=== PATIENT | female | born 1945 | race Caucasian/White ===

== ENCOUNTER 2025-04-13 09:39 | Outpatient (AMB) | payer BC, SELFPAY ==
--- NOTE | 2025-04-13 09:46 | MHC.PC.OV ---
Vital Signs 04/13/25 09:55 Height 5 ft 5.16 in Weight 150 lb 2 oz BMI 24.9 BP 134/84 Blood Pressure Location Lt brachial Position Sitting Respiration 12 Pulse 84 Pulse Source Pulse Oximeter Temp 98 F Temp Source Oral Pulse Oximetry (%) 98 Oxygen Delivery Method Room Air Intake Visit Reasons: COMMERCIAL LITIGATION PARALEGAL REG VISIT THYROID F/U Intake Note: New patient visit Card Sorter Required: No Allergies Seasonal Allergies Allergy (Unknown, Verified 04/13/25 09:32) Unknown dust mite Allergy (Unknown, Uncoded 04/13/25 09:32) Unknown Tobacco use date assessed: 04/13/25 Fall risk assessment: 1 Fall in past year Last assessed Fall Risk: 04/13/25 Dental Screening Dental Screen Date: 04/13/25 Did you have a dental visit in the last 12 months?: Yes Did you have a dental problem in the last 6 months where you did not have access to dental care?: No Was dental information given to patient?: Patient has dentist HPI HPI Comments History of Present Illness Details The patient is an 80 year old female with a past medical history of MS, htn, hypothyroid/goiter, GERD, neuropathy, presenting to [facility] care and for preoperative evaluation Transferring from [place] in [place]. She has cataract surgery planned with Dr Miranda MS: Followed by the [facility]. Was on avonex-but caused AVN. She is stable without any recent or frequent relapse. She has chronic cramping, painful numbness and tingling of the bilateral feet and lower legs Hypothyroid: on levothyroxine 50mcg. Sees endocrinology. CV: on losartan. 134/84. Denies chest pain, dyspnea. Osteoporosis: Followed by endocrinology. On fosamax Follows with cardiology: Every 2 years for AAA-3.9. There has been no significant change MSK: s/p left hip replacement 2023 Mammogrm 2023 Td 2019 ROS CONSTITUTIONAL: Denies weight loss, fever and chills. HEENT: Denies changes in vision and hearing. RESPIRATORY: Denies SOB and cough. CV: Denies palpitations and CP GI: increased constipation : Denies dysuria and urinary frequency. MSK: Denies new myalgia and joint pain. SKIN: Denies rash and pruritus. NEUROLOGICAL: Denies headache PSYCHIATRIC: Denies recent changes in mood. PHYSICAL EXAM: GENERAL: Alert and oriented x 3. NAD EYES: EOMI. Anicteric. HENT: Moist mucous membranes. No scleral icterus. No cervical lymphadenopathy. LUNGS: Clear to auscultation bilaterally. CARDIOVASCULAR: Regular rate and rhythm. No murmur. No JVD. ABDOMEN: Soft, non-tender +bs EXTREMITIES: No edema. Non-tender. SKIN: No rashes or lesions. Warm. NEUROLOGIC: No focal neurological deficits. CN II-XII grossly intact PSYCHIATRIC: Cooperative. Appropriate mood and affect [facility] Surgical History History of total hip replacement Hx of colonoscopy History of strabismus surgery Family History Father HTN (hypertension) Esophageal cancer Mother Breast cancer Other FH: mental illness Substance abuse Social History [facility] Alcohol intake: current Patient Tobacco Use Status: Former Tobacco user (quit 40-50 years ago social smoker. quit in 1987) Cigarettes Per Day: 1 Years Smoked: 4 e-Cigarette/Vaping Use: Never Used Second Hand Smoke Exposure: No service: No Current occupational status: retired Cognitive needs: No Hearing needs: No Vision needs: No Questionnaire PHQ-9 Over the last 2 weeks, how often have you been bothered by any of the following problems? 1. Little interest or pleasure in doing things: not at all 2. Feeling down, depressed, or hopeless: not at all 3. Trouble falling or staying asleep, or sleeping too much: not at all 4. Feeling tired or having little energy: not at all 5. Poor appetite or overeating: not at all 6. Feeling bad about yourself - or that you are a failure or have let yourself or your family down: not at all 7. Trouble concentrating on things, such as reading the newspaper or watching television: not at all 8. Moving or speaking so slowly that other people could have noticed. Or the opposite - being so fidgety or restless that you have been moving around a lot more than usual: not at all 9. Thoughts that you would be better off or of hurting yourself in some way: not at all Total score: 0 Depression Screening Interpretation: Negative Depression Screening Done: Yes 43342 - PHQ-9 Billing: Yes Source: Developed by Drs. You Ramey, Claritza Solorio, Madan Mendoza and colleagues, with an educational fabi from [employer]. Thrive Questionnaire Date Thrive assessed: 04/06/25 I am a: Patient What is your living situation today?: I have a steady place to live Within the past 12 months, did the food you bought not last and you didn't have the money to get more?: Never true Within the past 12 months, did you worry whether your food would run out before you got money to buy more?: Never true Do you have trouble paying for medicines?: No Do you have trouble getting transportation to medical appointments?: No Do you have trouble paying your heating and electricity bill?: No Do you have trouble taking care of your child, family member or friend?: No Do you have trouble with day-to-day activities such as bathing, preparing meals, shopping, managing finances, etc.?: No Are you currently unemployed and looking for a job?: No Are you interested in more education?: No Please select the resources that you would like help with: None Currently or been in a relationship where the following occur: No concerns reported THRIVE Score: 0 AUDIT C Alcohol Use Questionnaire (AUDIT-C) 1. How often do you have a drink containing alcohol?: 2-4 times a month 2. How many drinks containing alcohol do you have on a typical day when you are drinking?: 1 or 2 3. How often do you have six or more drinks on one occasion?: Never Total Score: 2 DEEPTI-7 AMB Questionnaire DEEPTI-7 Date DEEPTI - 7 assessed: 04/13/25 Feeling nervous, anxious, or on edge: 0 = Not at all Not being able to stop or control worryin = Not at all Worrying too much about different things: 0 = Not at all Trouble relaxin = Not at all Being so restless that it is hard to sit still: 0 = Not at all Becoming easily annoyed or irritable: 0 = Not at all Feeling afraid as if something awful might happen: 0 = Not at all Total DEEPTI-7 score (0-4 normal; 5-9 mild; 10-14 moderate; 15-21 severe): 0 Source: Developed by Drs. You Ramey, Claritza Solorio, Madan Mendoza and colleagues, with an educational fabi from [employer]. DEEPTI-7 Assessment Billing DEEPTI-7 Assessment Tool: DEEPTI-7 Assessment 15459 Physical exam (Primary Care) Vital Signs: Last Vital Signs Temp 98 F 04/13/25 09:55 Pulse 84 04/13/25 09:55 Resp 12 04/13/25 09:55 BP 134/84 04/13/25 09:55 Pulse Ox 98 04/13/25 09:55 Oxygen Delivery Method Room Air 04/13/25 09:55 BMI result Body Mass Index 24.9 Tobacco/Smoking Status: Tobacco use Status Tobacco use date assessed 04/13/25 04/13/25 09:52 Patient Tobacco Use Status Former Tobacco user (quit 40 04/13/25 10:02 -50 years ago social smoker. quit in 1987) e-Cigarette/Vaping Use Never Used 04/13/25 10:01 PHQ-9: PHQ-9 Score PHQ-9: Total score 0 04/13/25 10:02 Depression Screening Interpretation: Negative Thrive Assessment: Date of Thrive Assessment Date Thrive assessed 04/06/25 04/13/25 09:52 Currently or been in a relationship where the following occur: No concerns reported Coding Level of Care Code New Pt Level 5 (44705) Complex EM visit Add On G2211 Diagnoses Preoperative cardiovascular examination Z01.810 Primary hypertension I10 Hypertension type: primary hypertension Prediabetes R73.03 Change in bowel function R19.8 Additional Codes DEEPTI-7 Assessment Billing - DEEPTI-7 Assessment Tool: DEEPTI-7 Assessment 63198 ([id number]) PHQ-9 - 37488 - PHQ-9 Billing: Yes ([id number]) Assessment & Plan Assessment & Plan (1) Preoperative cardiovascular examination: Code(s): Z01.810 - Encounter for preprocedural cardiovascular examination (2) Hypertension: Code(s): I10 - Essential (primary) hypertension Category: Medical Qualifiers: Hypertension type: primary hypertension Qualified Code(s): I10 - Essential (primary) hypertension (3) Prediabetes: Code(s): R73.03 - Prediabetes Category: Medical (4) Change in bowel function: Code(s): R19.8 - Other specified symptoms and signs involving the digestive system and abdomen Category: Medical Plan 80 year old to establish care & preoperative cardiac evaluation Past medical, surgical, social history reviewed Blood pressure is well controlled. No chest pain EKG without LBBB or acute ischemic changes Labs ordered METS>/= 4- walks frequently, climbs stairs Average risk. She may proceed with surgery without further cardiac testing Orders: Orders Vitamin B12 and Folate Today G57.90 - Unspecified mononeuropathy of unspecified lower limb, I10 - Essential (primary) hypertension, R25.2 - Cramp and spasm, R73.03 - Prediabetes, Z13.220 - Encounter for screening for lipoid disorders, Z13.228 - Encounter for screening for other metabolic disorders Hemoglobin A1c Today G57.90 - Unspecified mononeuropathy of unspecified lower limb, I10 - Essential (primary) hypertension, R25.2 - Cramp and spasm, R73.03 - Prediabetes, Z13.220 - Encounter for screening for lipoid disorders, Z13.228 - Encounter for screening for other metabolic disorders Comprehensive Met. Panel Today G57.90 - Unspecified mononeuropathy of unspecified lower limb, I10 - Essential (primary) hypertension, R25.2 - Cramp and spasm, R73.03 - Prediabetes, Z13.220 - Encounter for screening for lipoid disorders, Z13.228 - Encounter for screening for other metabolic disorders Complete Blood Count Auto Diff Today G57.90 - Unspecified mononeuropathy of unspecified lower limb, I10 - Essential (primary) hypertension, R25.2 - Cramp and spasm, R73.03 - Prediabetes, Z13.220 - Encounter for screening for lipoid disorders, Z13.228 - Encounter for screening for other metabolic disorders NE electromyogram (EMG) Today G57.90 - Unspecified mononeuropathy of unspecified lower limb Lipid Panel Today G57.90 - Unspecified mononeuropathy of unspecified lower limb, I10 - Essential (primary) hypertension, R25.2 - Cramp and spasm, R73.03 - Prediabetes, Z13.220 - Encounter for screening for lipoid disorders, Z13.228 - Encounter for screening for other metabolic disorders IRON PROFILE Today G57.90 - Unspecified mononeuropathy of unspecified lower limb, I10 - Essential (primary) hypertension, R25.2 - Cramp and spasm, R73.03 - Prediabetes, Z13.220 - Encounter for screening for lipoid disorders, Z13.228 - Encounter for screening for other metabolic disorders NE nerve conduction velocity Today G57.90 - Unspecified mononeuropathy of unspecified lower limb TSH reflex Free T4 Today E03.9 - Hypothyroidism, unspecified Referrals Gastroenterology Referral R19.8 - Other specified symptoms and signs involving the digestive system and abdomen, Z12.11 - Encounter for screening for malignant neoplasm of colon Medications: New losartan 50 mg PO DAILY 90 tabs 1RF
[2025-04-13 09:55] VITALS: BP 134/84; PULSE 84; RESP 12; TEMP 36.6; O2SAT 98; BMI 24.9
--- OUTSIDE RECORDS SUMMARY | 2025-04-13 10:45 | XMS_ITS | Clinical Summary ---
Author Organization [facility] Address [address] [place] [address] Care Team Providers Care Electrical Lineworker Name Role Phone Freddy Braydon YOON Primary Care Provider [phone] Allergies Active Allergy Reactions Criticality Noted Date Comments Molds & Smuts 02/07/2021 Seasonal 02/07/2021 Medications Medication Sig Dispensed Refills Start Date End Date Status Ascorbic Acid (VITAMIN C) 500 MG CHEW Chew 500 mg by mouth. 0 Active b complex vitamins capsule Take 1 capsule by mouth. 0 Active Coral Calcium 133-66.7-133 MG-MG-UNIT CAPS Take 1 tablet by mouth. 0 Active ibuprofen (ADVIL,MOTRIN) 200 MG tablet Take 1 tablet (200 mg total) by mouth every 6 (six) hours as needed. 0 Active azelastine (ASTELIN) 0.1 % nasal spray USE 2 SPRAYS IN EACH NOSTRIL TWICE DAILY DIRECTED 0 11/16/2020 Active levothyroxine (SYNTHROID) tablet 50 mcg Take 1 tablet (50 mcg total) by mouth daily. 0 01/28/2023 Active alendronate (FOSAMAX) tablet 70 mg 0 02/19/2024 Active amLODIPine (NORVASC) tablet 5 mg Take 1 tablet (5 mg total) by mouth daily. 0 02/07/2024 Active gabapentin (NEURONTIN) 100 MG capsule 1-3 capsule nightly 90 capsule 3 02/26/2024 Active Active Problems Problem Noted Date Diagnosed Date Hypothyroidism 02/05/2020 Osteoporosis 02/05/2020 Family History Medical History Relation Name Comments Esophageal cancer Father Hypertension Father Cancer Mother Dementia Mother Relation Name Status Comments Father Mother Social History Tobacco Use Types Packs/Day Years Used Date Smoking Tobacco: Former Smokeless Tobacco: Never Tobacco Cessation:Counseling Given: Not Answered Alcohol Use Standard Drinks/Week Comments Yes 0 (1 standard drink = 0.6 oz pur e alcohol) Sex and Gender Information Value Date Recorded Sex Assigned at Female 02/20/2022 10:24 AM EDT Gender Identity Not on file Sexual Orientation Not on file Job Start Date Occupation Industry Not on file Not on file Not on file Last Filed Vital Signs Vital Sign Reading Time Taken Comments Blood Pressure 160/73 02/26/2024 11:07 AM EDT Pulse 77 02/26/2024 11:07 AM EDT Temperature 36.1 C (96.9 F) 02/26/2024 11:07 AM EDT Respiratory Rate 17 02/20/2023 11:07 AM EDT Oxygen Saturation 97% 02/26/2024 11:07 AM EDT Inhaled Oxygen Concentration - - Weight 74.2 kg (163 lb 8 oz) 02/26/2024 11:07 AM EDT Height 162.6 cm (5' 4 ) 02/26/2024 11:07 AM EDT Body Mass Index 28.06 02/26/2024 11:07 AM EDT Plan of Treatment Health Maintenance Due Date Last Done Comments Depression Screening 1957 Preventative Health Evaluation 1963 DTap / Tdap / Td (1 - Tdap) 1964 Fall Risk Assessment 2010 Osteoporosis Screening (DEXA Scan) 2010 RSV Adult > 60+ Yrs or (1 - 1-dose 75+ series) 2020 COVID-19 Vaccine ( season) 2025 05/07/2022, 06/29/2021, 11/30/2020, Additional history exists Influenza Vaccine (#1) 2025 2, 05/29/2021, 06/12/2019, Additional history exists Shingrix-Zoster Vaccine Completed 11/24/2018, 08/25 Pneumococcal Vaccine Completed 03/31/2020, 12/23/19 19 Hepatitis B Vaccines Aged Out No long er eligible based on patient's age to complete this topic RSV Ped < 20 months Aged Out No longe r eligible based on patient's age to complete this topic Care Teams Electrical Lineworker Relationship Specialty Start Date End Date Braydon Hayes DO [address] [place] [id number] PCP - General Family Medicine 02/19/22
--- OUTSIDE RECORDS SUMMARY | 2025-04-13 10:45 | XMS_ITS ---
Author Name [facility] Organization Unknown Care Team Organization Name Specialty Phone Email Start Date End [facility] THIERNO BROWN Primary Care 07/12/2022 024
--- OUTSIDE RECORDS SUMMARY | 2025-04-13 10:45 | XMS_ITS | Clinical Summary ---
Author Organization [facility] Address [address] [place] [address] Phone Care Team Providers Care Food Beverage Server Name Role Phone Jairo Reynolds DO Primary Care Provider Allergies No known active allergies Medications interferon beta-1a (AVONEX) 30 mcg/0.5 mL PnKt Inject 30 mcg into the muscle once a week. Active levothyroxine (SYNTHROID, LEVOTHROID) 50 MCG tablet Take 50 mcg by mouth every morning. Active ibuprofen (ADVIL,MOTRIN) 200 MG tablet Take 200 mg by mouth every 6 (six) hours as needed for pain (specific location in comments). Active ascorbic acid, vitamin C, (VITAMIN C) 500 mg Chew Take 500 mg by mouth daily. Active calcium carbonate 500 mg (200 mg elemental) chewable tablet Take 1 tablet by mouth as needed for heartburn. Active calcium dcmw-[id number]-[id number] um nita 133 mg calcium -133 unit-67 mg Cap Take 1 tablet by mouth daily. Active coenzyme Q10 100 mg capsule Take 100 mg by mouth daily. Active omega-3 fatty acids-fish oil 340-1,000 mg Cap Take by mouth daily. Active b complex vitamins capsule Take 1 capsule by mouth daily. Active neomycin-polymy jennifer B-dexamethasone (MAXITROL) 3.5 mg/g-10,000 unit/g-0.1 % Oint Place 0.5 inches into each eye 4 (four) times a day. 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 Not on roz e 12/07/2022 Are you concerned about learning? Not on file 12/07/2022 No 12/07/2022 No 12/07/2022 Digital Access Answer Date Recorded No 01/05/2023 No 01/05/2023 No 01/05/2023 Reliable internet access at home? Not on file 01/05/2023 Device with a working camera? Not on file Comments Unknown Sex and Gender Information Value Date Recorded Sex Assigned at Not on file Legal Sex Female 11:51 AM EST Gender Identity Not on file Sexual Orientation Not on file Last Filed Vital Signs Vital Sign Reading Time Taken Comments Blood Pressure 139/87 08/20/2017 2:15 PM EST Pulse 69 08/20/2017 1:00 PM EST Temperature 36.5 C (97.7 F) 08/20/2017 1:30 PM EST Respiratory Rate 16 08/20/2017 2:15 PM EST Oxygen Saturation 97% 08/20/2017 2:15 PM EST Inhaled Oxygen Concentration - - Weight 66.7 kg (147 lb) 08/20/2017 9:58 AM EST Height 165.1 cm (5' 5 ) 08/20/2017 9:58 AM EST Body Mass Index 24.46 08/20/2017 9:58 AM EST Plan of Treatment Health Maintenance Due Date Last Done Comments Adult Td,Tdap Booster 1945 LIPID PANEL 1945 TSH LEVEL 1945 DEPRESSION SCREENING 1957 SMOKING Hx and SMOKELESS TOBACCO SCREENING 1958 OSTEOPOROSIS SCREENING INITIAL (ONE-TIME) 2010 RSV VACCINE (1 - 1-dose 75+ series) 2020 INFLUENZA VACCINE (#1) 2025 9, 04/26/2018, 05/04/2017, Additional history exists COVID-19 VACCINE ( season) 2025 11/30/2020, 11/09/2020 ZOSTER VACCINES Completed 11/24/2018, 08/25/2018 PNEUMOCOCCAL VACCINES (50+ years) Completed 03/31/2020, 12/22/2018 HEPATITIS A VACCINES Aged Out No long er eligible based on patient's age to complete this topic HIB VACCINES Aged Out No longer eligi ble based on patient's age to complete this topic MENINGOCOCCAL VACCINES (ACWY) Aged Out No longer eligible based on patient's age to complete this topic MENINGOCOCCAL VACCINES (B) Aged Out N o longer eligible based on patient's age to complete this topic Medical Devices Not on file Insurance [facility] [place] [address] [place] [address] [facility] Advance Directives For more information, please contact: [phone] (9AM - 5PM [facility], Saturday-Saturday) Documents on File Type Date Recorded Patient Cytogenetic Technologist Expl anation Healthcare Proxy 08/23/2017 9:54 AM Care Teams Food Beverage Server Relationship Specialty Start Date End Date Jairo Reynolds DO [address] [facility] [place] [address] PCP - General Family Medicine 06/19/17 Additional Source Comments The information contained in this document represents components of the legal health record. It is not the complete legal health record.[facility]
--- OUTSIDE RECORDS SUMMARY | 2025-04-13 10:45 | XMS_ITS | Encounter Summary ---
Author Organization [facility] Address [address] [place] [address] Care Team Providers Care Hospice Administrator Name Role Phone Mariana Maurice MD Primary Care Provider [phone] Encounter Details Date Type Department Care Team (Latest Contact Info) Description 07/02/2024 Lab Requisition [facility] - Main Lab [address] [facility] [place] [address] Jignesh Bauman MD [address] [facility] [address] [place] [address] Encounter for gynecological examination (general) (routine) without abnormal findings Social History Tobacco Use Types Packs/Day Years Used Date Smoking Tobacco: Former Smokeless Tobacco: Never Alcohol Use Standard Drinks/Week Comments Yes 0 (1 standard drink = 0.6 oz pur e alcohol) Comments Unknown Sex and Gender Information Value Date Recorded Sex Assigned at Not on file Legal Sex Female 2:31 PM EST Gender Identity Not on file Sexual Orientation Not on file documented as of this encounter Plan of Treatment Upcoming Encounters Date Type Department Care Team (Late st Contact Info) Description 06/25/2025 11:00 AM EST Office Visit [facility] [address] [facility] [place] [address] Mariana Rowley PA [address] [place] [address] documented as of this encounter Procedures Procedure Name Priority Date/Time Associated Diagnosis Comments PAP SMEAR Routine 07/01/2024 12:00 AM EST Encounter for gynecological examination (general) (routine) without abnormal findings documented in this encounter Results * Pap smear (07/01/2024 12:00 AM EST) Interpretation Negative for intraepithelial lesion or malignancy 07/07/2024 8:55 AM [facility] General Categorization Negative 07/07/2024 8:55 AM [facility] Other Findings Atrophy 07/07/2024 8:55 AM [facility] Specimen Adequacy Satisfactory for evaluation 07/07/2024 8:55 AM [facility] Pap Methodology Liquid Based Pap Test 07/07/2024 8:55 AM [facility] Disclaimer The Pap test is a screening test which carries an inherent false negative rate. These test results should be correlated with the patient's clinical findings and history. This Pap test was processed using an automated screening system. Technical cytopathology services provided by [facility], at [address] [place] [address] (CLIA # [id number]/Nahomi Smith MD, Business Support Associate.) 07/07/2024 8:55 AM [facility] Console Pap Interpretation Reported 07/07/2024 8:55 AM [facility] Brushing/Spatula Cervix uteri structure / Unknown 07/01/2024 07/02/2024 10:18 AM EST us Jignesh Bauman MD LAB CYTOLOGY ORDERABLES Final Result [facility] [address] [place] [address], [place] [phone] documented in this encounter Visit Diagnoses Diagnosis Encounter for gynecological examination (general) (routine) without abnormal findings documented in this encounter Care Teams Hospice Administrator Relationship Specialty Start Date End Date Mariana Maurice MD [address] [place] [address] PCP - General Internal Medicine 12/15/24 documented as of this encounter
--- OUTSIDE RECORDS SUMMARY | 2025-04-13 10:45 | XMS_ITS | Encounter Summary ---
Author Organization [facility] Address [address] [place] [address] Phone Care Team Providers Care Sales Marketing Name Role Phone Jairo Reynolds DO Primary Care Provider Encounter Details Date Type Department Care Team (Late st Contact Info) Description 08/20/2017 Procedure Pass [facility] MAIN PERIOP DEPT [address] [place] [address] [phone] Social History Tobacco Use Types Packs/Day Years Used Date Smoking Tobacco: Former Cigarettes Q uit: 08/13/1988 Smokeless Tobacco: Never Alcohol Use Standard Drinks/Week Comments Yes 1 (1 standard drink = 0.6 oz pur e alcohol) socially Comments Unknown Sex and Gender Information Value Date Recorded Sex Assigned at Not on file Legal Sex Female 11:51 AM EST Gender Identity Not on file Sexual Orientation Not on file documented as of this encounter Plan of Treatment Not on file documented as of this encounter Visit Diagnoses Not on filedocumented in this encounter Care Teams Sales Marketing Relationship Specialty Start Date End Date Jairo Reynolds DO [address] [facility] [place] [address] PCP - General Family Medicine 06/19/17 documented as of this encounter Additional Source Comments The information contained in this document represents components of the legal health record. It is not the complete legal health record.[facility]
--- OUTSIDE RECORDS SUMMARY | 2025-04-13 10:45 | XMS_ITS | Clinical Summary ---
Author Organization [facility] Address [address] [place] [address] Phone Care Team Providers Care Edger Machine Operator Name Role Phone Mariana Maurice MD Primary Care Provider [phone] Allergies Active Allergy Reactions Criticality Noted Date Comments House Dust Mite 03/31/2020 Mold 02/07/2021 Other 12/25/2018 Pollen Extracts Runny nose 12/25/2018 Medications ascorbic acid (VITAMIN C) 500 mg chewable tablet Chew 1 tablet (500 mg total). Active b complex vitamins (Vitamins B Complex) capsule Take 1 capsule by mouth. Active calcium [id number]-[id number] um nita 133 mg calcium -133 unit-67 mg capsule Take 1 tablet by mouth. Active OMEGA-3 FATTY ACIDS-FISH OIL ORAL Take by mouth 1 (one) time each day. Active cholecalciferol (VITAMIN D-3) 25 mcg (1,000 unit) tablet Take by mouth 1 (one) time each day. Active ibuprofen (ADVIL,MOTRIN) 200 mg tablet Take 1 tablet (200 mg total) by mouth every 6 hours as needed. Active levothyroxine (SYNTHROID, LEVOTHROID) 50 mcg tablet Take 1 tablet (50 mcg total) by mouth. 01/28/2023 Active alendronate (FOSAMAX) 70 mg tablet 02/19/2024 Active losartan (COZAAR) 50 mg tablet Take 1 tablet (50 mg total) by mouth 1 (one) time each day. 90 tablet 02/26/2025 Active Active Problems Problem Noted Date Diagnosed Date Avascular necrosis of femora l neck, right (CMS/[facility] V24, [facility] V28) 03/07/2023 Pain in the neck 03/22/2022 Bilateral foot pain 03/06/2021 Overview (10/09/2023): Chronic, on gabapentin [facility] [place] Essential hypertension 03/31/2020 Mild dilation of ascending aorta ([facility] [place]24) 0 01/25/2020 Overview (10/09/2023): 3.[address] 01/2020. Ref to cardiac surg Osteoporosis 06/30/2019 Overview (10/09/2023): Bone density done in 2018- On Fosamax since 2018. Seeing marker delivery. Hypothyroidism 12/25/2018 Overview (10/09/2023): Also goiter Last Assessment & Plan: Endocrinolist MS (multiple sclerosis) ([facility] [place] V24, [facility] V2 8) 12/25/2018 Overview (10/09/2023): [facility] for MS Multiple sclerosis for 30 years, no major hospitalization. On Avonex injection since 2000. Anemia 12/09/2018 Prediabetes 12/09/2018 Immunizations Name Administration Dates Next Due Influenza trivalent, 0.5mL ( Fluzone High-dose) 65yo and older 06/07/2022,05/29/2021,06/12/2019,05/04,06/03/2015 Influenza trivalent, with pr eservative (Fluzone; Afluria) 6mo and older 06/12/2019,04/26/2018,05/31/2014,06/03 Influenza, Unspecified 06/17/2023 Qlue SARS-CoV-2 COVID-19, mRNA, LNP-S, preservative free 05/07/2022,06/29/2021,11/30/2020,11/09 Pneumococcal conjugate 13 va lent (Prevnar 13, PCV13) 2mo and older 12/22/2018 Pneumococcal polysaccharide 23 valent (Pneumovax 23) 2yo and older 03/31/2020,12/22/2018 Td Tetanus diptheria (Tdvax) 7yo and older 08/08/2023 Zoster recombinant (Shingrix ) 19yo and older 11/24/2018,08/25/2018 Surgical History Surgery Date Site/Laterality Comments EYE SURGERY Left PROCEDURE:EYE SURGERY HIP ARTHROSCOPY W/ LABRAL REPAIR Medical History Medical History Date Comments Acid reflux DX:Acid reflux Thyroid disease DX:Thyroid disea se Anemia DX:Anemia Hypertension DX:Hypertension Osteoporosis DX:Osteoporosis Family History Medical History Relation Name Comments [...] on file Sexual Orientation Not on file Obstetrics History Last Filed Vital Signs Vital Sign Reading Time Taken Comments Blood Pressure 137/76 12/23/2024 10:57 AM EDT Pulse 73 12/23/2024 10:57 AM EDT Temperature 36.6 C (97.9 F) 07/20/2024 11:00 AM EST Respiratory Rate - - Oxygen Saturation 99% 12/23/2024 10:57 AM EDT Inhaled Oxygen Concentration - - Weight 69.4 kg (153 lb) 12/23/2024 10:57 AM EDT Height 162.6 cm (5' 4 ) 12/23/2024 10:57 AM EDT Body Mass Index 26.26 12/23/2024 10:57 AM EDT Plan of Treatment Upcoming Encounters Date Type Department Care Team (Late st Contact Info) Description 06/25/2025 11:00 AM EST Office Visit [address] [place] [address] Mariana Rowley, RAYMUNDO [address] [place] [phone] Health Maintenance Due Date Last Done Comments RSV Immunization Adult Patients (1 - 1-dose 75+ series) 2020 Colorectal Cancer Screening: Stool Based Tests (FOBT/FIT) 07/21/2022 Falls Risk Assessment 07/21/2022 Medicare Annual Wellness Visit 07/21/2022 Social Influencers of Health Screening 07/21/2022 Depression Screening 08/12/2024 COVID-19 Vaccine ( season) 2024 06/17/2024, 06/05/2023, 05/07/2022, Additional history exists Influenza Vaccine (#1) 2025 , 06/17/2023, 05/22/2023, Additional history exists Hypertension/CHF/CAD Annual BMP Blood Test 10/07/2025 10/07/2024, 10/07/2024, 06/12/2024 Cholesterol Screening (Lipid Panel) 06/12/2029 06/12/2024 Osteoporosis Screening (Bone Density Screening) 06/17/2033 06/17/2023, 06/12/2021, 11/24/2018 DTaP,Tdap,and Td Vaccines (2 - Td or Tdap) 08/08/2033 08/08/2023 Zoster Vaccines Completed 11/24/2018, 08/25/2018 Pneumococcal Vaccine: 50+ Years Completed 03/31/2020, 12/22/2018, 12/22/2018 HIB Vaccines Aged Out No longer eligi ble based on patient's age to complete this topic HPV Vaccines Aged Out No longer eligi ble based on patient's age to complete this topic Hepatitis A Vaccines Aged Out No long er eligible based on patient's age to complete this topic Hepatitis B Vaccines Aged Out No long er eligible based on patient's age to complete this topic IPV Vaccines Aged Out No longer eligi ble based on patient's age to complete this topic MMR Vaccines Aged Out No longer eligi ble based on patient's age to complete this topic Meningococcal ACWY Vaccine Aged Out N o longer eligible based on patient's age to complete this topic Meningococcal B Vaccine Aged Out No l onger eligible based on patient's age to complete this topic RSV Immunization Patients Under 20 months Aged Out No longer eligible based on patient's age to complete this topic Varicella Vaccines Aged Out No longer eligible based on patient's age to complete this topic Procedures Procedure Name Priority Date/Time Associated Diagnosis Comments DXA BONE DENSITY STUDY 1+ SITS AXIAL SKEL Routine 06/17/2023 11:32 AM EST Encounter for screening for osteoporosis from Last 3 Months or Most Recently Relevant to Health Maintenance Results * DXA BONE DENSITY STUDY 1+ SITS AXIAL SKEL (06/17/2023 11:32 AM EST) Anatomical Region Laterality Modality Bone Densitometr y 03/13/2023 10:3 2 AM EDT Narrative 06/18/2023 12:58 PM EST BONE DENSITY Lumbar Spine T-score is -3.0 (SD relative to 20-29 y/o adult) Z-score is -0.5 (SD relative to age matched peers) This is consistent with osteoporosis by criteria defined by the WHO. Left Hip T-score is -1.3 Z-score is +0.9 This is consistent with osteopenia by criteria defined by the WHO. Comparison exam(s): significant decrease in bone density of lumbar spine when compared to most recent bone density examination Confidence level is +/-95%. Impression: Based on the World Health Organization criteria, Lupe Schilling should be classified as having osteoporosis. The [facility] Department of Internal Medicine recommends using National Osteoporosis Foundation (NOF) guidelines in treatment decisions related to osteoporosis. NOF guidelines suggest considering treatment for postmenopausal women and men aged 50 or older presenting with the following: History of hip or vertebral fracture. T-score less than or equal to -2.5 (DXA) at the femoral neck, total hip, or spine, after appropriate evaluation to exclude secondary causes. Low bone mass (T-score between -1.0 and -2.5 at the femoral neck or spine) AND a 10-year probability of a hip fracture greater than or equal to 3% OR a 10-year probability of a major osteoporosis-related fracture greater than or equal to 20% based on the [place]-adapted WHO algorithm Please note that all treatment decisions require clinical judgment and consideration of individual patient factors, including patient preferences, co-morbidities, previous drug use, risk factors not captured in the FRAX model (e.g., frailty, falls, vitamin D deficiency, increased bone turnover, interval significant decline in bone density) and possible under- or over-estimation of fracture risk by FRAX. Procedure Note Rylee Batista MD - 09/17/2023 BONE DENSITY Lumbar Spine T-score is -3.0 (SD relative to 20-29 y/o adult) Z-score is -0.5 (SD relative to age matched peers) This is consistent with osteoporosis by criteria defined by the WHO. Left Hip T-score is -1.3 Z-score is +0.9 This is consistent with osteopenia by criteria defined by the WHO. Comparison exam(s): significant decrease in bone density of lumbar spinewhen compared to most recent bone density examination Confidence level is +/-95%. Impression: Based on the World Health Organization criteria, Lupelayla Schilling shouldbe classified as having osteoporosis. The [facility] Department of Internal Medicine recommendsusing National Osteoporosis Foundation (NOF) guidelines in treatmentdecisions related to osteoporosis. NOF guidelines suggest consideringtreatment for postmenopausal women and men aged 50 or older presentingwith the following: History of hip or vertebral fracture. T-score less than or equal to -2.5 (DXA) at the femoral neck, total hip,or spine, after appropriate evaluation to exclude secondary causes. Low bone mass (T-score between -1.0 and -2.5 at the femoral neck or spine)AND a 10-year probability of a hip fracture greater than or equal to 3% ORa 10-year probability of a major osteoporosis-related fracture greaterthan or equal to 20% based on the [place]-adapted WHO algorithm Please note that all treatment decisions require clinical judgment andconsideration of individual patient factors, including patientpreferences, co-morbidities, previous drug use, risk factors not capturedin the FRAX model (e.g., frailty, falls, vitamin D deficiency, increasedbone turnover, interval significant decline in bone density) and possibleunder- or over-estimation of fracture risk by FRAX. Braydon Hayes DO IMG DXA PROCEDURES Final Result from Last 3 Months or Most Recently Relevant to Health Maintenance Insurance [employer] [employer] - [place] MEDICARE AD[place]ANTAGE Care Teams Edger Machine Operator Relationship Specialty Start Date End Date Mariana Maurice MD [address] [place] [address] PCP - General Internal Medicine 12/15/24
== END 2025-04-13 10:38 | disposition home or self-care (01) ==
LOC: HO.HMCFM 09:40
PROVIDERS: PCP Internal Medicine; Visit Provider Internal Medicine
DX: I10 Essential (primary) hypertension (principal); R73.03 Prediabetes; R19.8 Other specified symptoms and signs involving the digestive system and abdomen; Z01.810 Encounter for preprocedural cardiovascular examination

== ENCOUNTER 2025-04-13 09:39 | Outpatient (REF) | payer BC, SELFPAY ==
--- OUTSIDE RECORDS SUMMARY | 2025-04-13 15:09 | XMS_ITS | Continuity of Care Document ---
Author Organization [facility] [address] [facility] [address] [place] [address] Phone [phone] Care Team Providers Care Burring Wheel Operator Name Role Phone Deepti Jett Care Team Information Senior Librarian [phone] Mariana Julian M.D. Care Team Information Senior Librarian [phone] Problems Active Problems Provider Date Non-toxic multinodular goiter Lisa Saenz Onset: 03/26/2022 Essential hypertension Scott Ferreira M.D. Ons et: 03/26/2022 Osteoporosis Scott Ferreira M.D. Onset: Multiple sclerosis Scott Ferreira M.D. Onset: 03/26/2022 Hypothyroidism Scott Ferreira M.D. Onset: Social History Type Date Description Comments Sex Female Sex Unknown Lives With Alone ETOH Use Drinks 3 Alcohol ic Beverages Per Week Tobacco Use Start: Unknown End: Unknown Patient is a former smoker quit 1988 Allergies and adverse reactions Description No Known Drug Allergies Medications Active Medications SIG Qnty Indications Ordering Provider Date Alendronate [id number] Tablets Take 1 Tablet By Mouth Every Week 12taalexandra Worthington M.D. 06/25/2023 Levothyroxine [id number] Tablets Take 1 Tablet By Mouth Every Day 90taalexandra Worthington M.D. 03/26/2022 Azelastine HCL (Nasal)0.1% Solution Use 1 [place] In Each Nostril Twice Daily Imani Jacob MD Losartan [id number] Tablets One tablet daily [facility] Vital Signs Date Vital Result Comment 12/18/2024 1:05pm BP Systolic 142 mmHg BP Diastolic 88 mmHg Heart Rate 90 /min Height 64.75 inches 5'4.75 Weight 157.38 lb BMI (Body Mass Index) 26.4 kg/m2 Results Test Acquired Date Facility Test Result H/L Range N ote Calcium, Random Urine 01/07/2025 [facility] Calcium, Random Urine 13.2 mg/dL Not Estab. Calcium 01/05/2025 [facility] Calcium 10.5 mg/dL High 8.7-10.3 1 Albumin 01/05/2025 [facility] Albumin 4.2 g/dL 3.8-4.8 PTH, Intact 01/05/2025 [facility] PTH, Intact 31 pg/mL 15-65 Vitamin D, 25-Hydroxy 01/05/2025 [facility] Vitamin D, 25-Hydroxy 41.1 ng/mL 30.0-100.0 2 TSH Rfx on Abnormal to Free T4 12/14/2024 [facility] TSH Rfx on Abnormal to Free T4 1.710 uIU/mL 0.450-4.50 0 Thyrotropin Receptor Ab, Serum 12/14/2024 [facility] Thyrotropin Receptor Ab, Serum <1.10 IU/L 0.00-1.75 Thyroid Peroxidase (Tpo) Ab 12/14/2024 [facility] Thyroid Peroxidase (Tpo) Ab 10 IU/mL 0-34 1 Verified by repeat analysis 2 Vitamin D deficiency has been defined by the [place] of [employer] and an Endocrine Society practice guideline as a level of serum 25-OH vitamin D less than 20 ng/mL (1,2). The Endocrine Society went on to further define vitamin D insufficiency as a level between 21 and 29 ng/mL (2). 1. IOM ([place] [employer]). 2010. Dietary reference intakes for calcium and D. [place]: The National Academies Press. 2. Pj MF, Fabián SMITH, Shan MAYORGA, et al. Evaluation, treatment, and prevention of vitamin D deficiency: an Endocrine Society clinical practice guideline. JCEM. 2010; 96(7):1911-30. Procedures Date Code Description Status 03/27/2022 NSHOWOFF No Show Office Visit Complet ed Medical Devices Description No Information Available Encounters Type Date Location Provider Dx Diagnosis Office Visit 12/18/2024 1:00p Main Office RAYMUNDO Espinoza E04.2 Nontoxic mult inodular goiter M81.0 Age-related osteopor osis w/o current pathological fracture E03.9 Hypothyroidism, unsp ecified E83.52 Hypercalcemia Assessments Date Code Description Provider 12/18/2024 E04.2 Multinodular goiter RAYMUNDO Moore 12/18/2024 M81.0 Osteoporosis RAYMUNDO Espinoza 12/18/2024 E03.9 Hypothyroidism RAYMUNDO Farrar 12/18/2024 E83.52 Hypercalcemia RAYMUNDO Espinoza Plan of Treatment Future Appointment(s):* 06/21/2025 10:15 am - Brandon Garza NP at Main Office 12/18/2024 - RAYMUNDO Espinoza* E04.2 Multinodular goiter * M81.0 Osteoporosis * E03.9 Hypothyroidism * E83.52 Hypercalcemia Functional Status Description No Information Available Mental Status Description No Information Available Referrals Refer to Reason for Referral Status Appt Scott Whalen M.D. Closed [address] [place] [address] Drive [address] [place] [address] [phone]
[2025-04-13 17:37] LABS: MANUAL DIFF FLAG NO
[2025-04-13 17:47] LABS: Hematocrit 34.6 % (37.0-47.0); Hemoglobin 11.2 g/dl (12.0-16.0); Imm Gran Abs Auto 0.02 X10*3/uL (0.00-0.03); Imm Gran Pct Auto 0.2 % (0.0-0.4); Lymphocytes Absolute Auto 2.8 X10*3/uL (1.2-4.9); Mean Corpuscular HGB Conc 32.4 g/dl (31.0-35.0); Mean Corpuscular Hemoglobin 26.2 pg (27.0-33.0); Mean Corpuscular Volume 81.0 fL (80.0-98.0); NRBC Abs Auto 0.000 X10*3/uL (0.0-0.012); NRBC Pct Auto 0.0 /100WBC (0.0-0.2); Platelet Count 280 X10*3/uL (160-400); Red Blood Count 4.27 X10*6/uL (4.20-5.50); White Blood Count 8.4 X10*3/uL (4.8-10.8)
[2025-04-13 18:07] LABS: Hemoglobin A1C 116.4404 umol/L
[2025-04-13 18:21] LABS: Alanine Aminotransferase 21 U/L (0-31); Albumin Level 4.4 g/dL (3.5-5.0); Alkaline Phosphatase 82 U/L (39-117); Anion Gap 10 (12-20); Aspartate Amino Transferase 23 U/L (5-31); Blood Urea Nitrogen 16 mg/dL (9-16); Calcium 9.9 mg/dL (8.4-10.2); Carbon Dioxide 29 mmol/L (22-29); Chloride 101 mmol/L (96-108); Cholesterol 171 mg/dL (<200); Estimated Glomerular Filt Rate > 60; HDL Cholesterol 62 mg/dL (>40); Iron 34 mcg/dL (30-160); Percent Iron Saturation 12 % (15-50); Potassium 5.0 mmol/L (3.3-5.1); Sodium 135 mmol/L (135-145); Total Iron Binding Capacity 290 mcg/dL (228-428); Total Protein 7.2 g/dL (6.5-8.0); Triglycerides 113 mg/dL (<150); Unsaturated Iron Binding 256 ug/dL
[2025-04-13 19:08] LABS: Folate 12.1 ng/mL (> or = 4.0); Vitamin B12 657 pg/mL (200-900)
== END 2025-04-13 09:40 | disposition home or self-care (01) ==
LOC: HO.WFDLDS 09:39
PROVIDERS: PCP Internal Medicine; Visit Provider Internal Medicine
DX: Z01.810 Encounter for preprocedural cardiovascular examination (principal); Z13.228 Encounter for screening for other metabolic disorders; Z13.220 Encounter for screening for lipoid disorders; R91.8 Other nonspecific abnormal finding of lung field; I10 Essential (primary) hypertension; R73.03 Prediabetes; G57.90 Unspecified mononeuropathy of unspecified lower limb; R25.2 Cramp and spasm
CPT/HCPCS: 36415; 80053; 80061; 82607; 82746; 83036; 83540; 84443; 85025; 96127

== ENCOUNTER 2025-08-09 12:46 | Outpatient (AMB) | payer BC, SELFPAY ==
--- NOTE | 2025-08-09 12:52 | A.OFFVIS_ITS ---
Vital Signs 08/09/25 12:59 08/09/25 13:03 Weight 146 lb 6 oz BP 179/81 H 149/67 H Blood Pressure Location Lt brachial Lt brachial Position Sitting Sitting Respiration 14 Pulse 68 Pulse Source Pulse Oximeter Pulse Oximetry (%) 100 Oxygen Delivery Method Room Air Intake Visit Reasons: Hypertension Intake Note: Emergency room follow up Allergies Seasonal Allergies Allergy (Unknown, Verified 04/13/25 09:32) Unknown dust mite Allergy (Unknown, Uncoded 04/13/25 09:32) Unknown HPI Comments Details: The patient is an 80 year old female with a past medical history of MS, htn, hypothyroid/goiter, GERD, neuropathy, presenting for ER follow up The patient was evaluated in the ER on 07/30. She presented with concerns for allergic reaction. She had been placed on amoxicillin for dental extraction. The she was having right hip pain, she went and received a steroid injection and was placed on meloxicam. Her blood pressure was very elevated in the ER. She has not taken any additional meloxicam. Using advil sparingly s/p cataract surgery planned with Dr Miranda MS: Followed by the [facility]. Was on avonex-but caused AVN. She is stable without any recent or frequent relapse. She has chronic cramping, painful numbness and tingling of the bilateral feet and lower legs Hypothyroid: on levothyroxine 50mcg. Sees endocrinology. CV: on losartan 50mg daily. BP has been slightly suboptimal. Denies chest pain, dyspnea. Osteoporosis: Followed by endocrinology. On fosamax Follows with cardiology: Every 2 years for AAA-3.9. There has been no significant change MSK: s/p left hip replacement 2023 Mammogrm 2023 Td 2019 Patient has appt with Dr Arredondo in August. She had last colonoscopy 11 years ago. She is slightly anemic ROS CONSTITUTIONAL: Denies weight loss, fever and chills. HEENT: Denies changes in vision and hearing. RESPIRATORY: Denies SOB and cough. CV: Denies palpitations and CP GI: increased constipation : Denies dysuria and urinary frequency. MSK: Denies new myalgia and joint pain. SKIN: Denies rash and pruritus. NEUROLOGICAL: Denies headache PSYCHIATRIC: Denies recent changes in mood. PHYSICAL EXAM: GENERAL: Alert and oriented x 3. NAD EYES: EOMI. Anicteric. HENT: Moist mucous membranes. No scleral icterus. No cervical lymphadenopathy. LUNGS: Clear to auscultation bilaterally. CARDIOVASCULAR: Regular rate and rhythm. No murmur. No JVD. ABDOMEN: Soft, non-tender +bs EXTREMITIES: No edema. Non-tender. SKIN: No rashes or lesions. Warm. NEUROLOGIC: No focal neurological deficits. CN II-XII grossly intact PSYCHIATRIC: Cooperative. Appropriate mood and affect [facility] Surgical History History of total hip replacement Hx of colonoscopy History of strabismus surgery Family History Father HTN (hypertension) Esophageal cancer Mother Breast cancer Other FH: mental illness Substance abuse Social History Housing: [facility] Alcohol intake: current Patient Tobacco Use Status: Former Tobacco user (quit 40-50 years ago social smoker. quit in 1987) Cigarettes Per Day: 1 Years Smoked: 4 e-Cigarette/Vaping Use: Never Used Second Hand Smoke Exposure: No service: No Current occupational status: retired Cognitive needs: No Hearing needs: No Vision needs: No Physical Exam Vital Signs: Last Vital Signs Pulse 68 08/09/25 12:59 Resp 14 08/09/25 12:59 BP 149/67 H 08/09/25 13:03 Pulse Ox 100 08/09/25 12:59 Oxygen Delivery Method Room Air 08/09/25 12:59 Assessment & Plan Assessment & Plan (1) Hypertension: Code(s): I10 - Essential (primary) hypertension Category: Medical Qualifiers: Hypertension type: primary hypertension Qualified Code(s): I10 - Essential (primary) hypertension (2) Prediabetes: Code(s): R73.03 - Prediabetes Category: Medical Plan 80 year old presenting for follow up Recent ER visit Blood pressure remains slightly elevated-start losartan 50-hctz 12.5 Hypothyroid-stable on levothyroxine Medications: New losartan-hydrochlorothiazide 50-12.5 mg 1 tab PO DAILY 90 tabs 3RF Discontinued losartan Discontinued Reason: Doctor's Order 50 mg PO DAILY 90 tabs 1RF Coding Level of Care Code Est Pt Level 4 (83624) Diagnoses Primary hypertension I10 Hypertension type: primary hypertension Prediabetes R73.03
[2025-08-09 12:59] VITALS: BP 179/81; PULSE 68; RESP 14; O2SAT 100
[2025-08-09 13:03] VITALS: BP 149/67
--- OUTSIDE RECORDS SUMMARY | 2025-08-09 14:37 | XMS_ITS | Encounter Summary ---
Author Organization [facility] Address [address] [place] [address] Care Team Providers Care Rand Butting Machine Operator Name Role Phone Mariana Maurice MD Primary Care Provider [phone] Encounter Details Date Type Department Care Team (Latest Contact Info) Description 07/02/2024 Lab Requisition [facility] - Main Lab [address] [facility] [place] [address] Jignesh Bauman MD [address] [facility] [address] [place] [phone] Encounter for gynecological examination (general) (routine) without [...] Care Team (Late st Contact Info) Description 08/31/2025 10:10 AM EST Consult Gastroenterology - [address] [place] [address] Le Shepard PA [address] [place], [place] [id number] 12/23/2025 10:30 AM EDT Office Visit [facility] [address] [place] [address] Lisseth Mccarthy MD [address] [place] [address] documented as of this encounter Procedures Procedure Name Priority Date/Time Associated Diagnosis Comments PAP SMEAR Routine 07/01/2024 12:00 AM EST Encounter for gynecological examination (general) (routine) without abnormal findings documented in this encounter Results * Pap smear (07/01/2024 12:00 AM EST) Interpretation Negative for intraepithelial lesion or malignancy 07/07/2024 8:55 AM [facility] at 0855 EST General Categorization Negative 07/07/2024 8:55 AM [facility] Other Findings Atrophy 07/07/2024 8:55 AM [facility] Specimen Adequacy Satisfactory for evaluation 07/07/2024 8:55 AM [facility] Pap Methodology Liquid Based Pap Test 07/07/2024 8:55 AM [facility] Disclaimer The Pap test is a screening test which carries an inherent false negative rate. These test results should be correlated with the patient's clinical findings and history. This Pap test was processed using an automated screening system. Technical cytopathology services provided by [facility], at [address] [place] [address] (CLIA # [id number]/Nahomi Smith MD, Managing Partner.) 07/07/2024 8:55 AM [facility] Console Pap Interpretation Reported 07/07/2024 8:55 AM [facility] Brushing/Spatula Cervix uteri structure / Unknown 07/01/2024 07/02/2024 10:18 AM EST us Jignesh Bauman MD LAB CYTOLOGY ORDERABLES Final Result [facility] LAB [address] [place] [address], documented in this encounter Visit Diagnoses Diagnosis Encounter for gynecological examination (general) (routine) without abnormal findings documented in this encounter Care Teams Rand Butting Machine Operator Relationship Specialty Start Date End Date Mariana Maurice MD [address] [place] [address] PCP - General Internal Medicine 12/15/24 documented as of this encounter
--- OUTSIDE RECORDS SUMMARY | 2025-08-09 14:37 | XMS_ITS | Clinical Summary ---
Author Organization [facility] Prior to 01/09/25 Address [address] [place] [address] Care Team Providers Care Hot Worker Name Role Phone Freddy Braydon YOON Primary Care Provider [phone] Allergies Active Allergy Reactions Criticality Noted Date [...] - 1-dose 75+ series) 2020 COVID-19 Vaccine (2024- season) 2025 05/07/2022, 06/29/2021, 11/30/2020, Additional history exists Influenza Vaccine (#1) 2025 , 05/29/2021, 06/12/2019, Additional history exists Shingrix-Zoster Vaccine Completed 11/24/2018, 08/25 Pneumococcal Vaccine Completed 03/31/2020, 12/23/19 19 Hepatitis B Vaccines Aged Out No long er eligible based on patient's age to complete this topic RSV Ped < 20 months Aged Out No longe r eligible based on patient's age to complete this topic Care Teams Hot Worker Relationship Specialty Start Date End Date Braydon Hayes DO [address] [place] [address] PCP - General Family Medicine 02/19/22
--- OUTSIDE RECORDS SUMMARY | 2025-08-09 14:37 | XMS_ITS | Encounter Summary ---
Author Organization [facility] Address [address] [place] [phone] Phone Care Team Providers Care Grocery Team Member Name Role Phone Jairo Reynolds DO Primary Care Provider Encounter Details Date Type Department Care Team (Late st Contact Info) Description 08/20/2017 Procedure Pass [facility] MAIN PERIOP DEPT [address] [place] [address] [phone] Social History Tobacco Use Types Packs/Day Years [...] on filedocumented in this encounter Care Teams Grocery Team Member Relationship Specialty Start Date End Date Jairo Reynolds DO [address] [facility] [place] [address] PCP - General Family Medicine 06/19/17 documented as of this encounter Additional Source Comments The information contained in this document represents components of the legal health record. It is not the complete legal health record.[facility]
--- OUTSIDE RECORDS SUMMARY | 2025-08-09 14:37 | XMS_ITS | Continuity of Care Document ---
Author Organization [facility] Address [address] [place] [address] Phone [phone] Care Team Providers Care Instrument Man Name Role Phone Johnie Deepti Care Team Information Education Trainer [phone] Mariana Julian M.D. Care Team Information Education Trainer [phone] Problems Active Problems Provider Date Non-toxic multinodular [...] Medications SIG Qnty Indications Ordering Provider Date Levothyroxine [id number] Tablets Take 1 Tablet By Mouth Every Day 90tabs Brandon Garza NP 03/26/2022 Azelastine HCL (Nasal)0.1% Solution Use 1 [place] In Each Nostril Twice Daily Imani Jacob MD Losartan [id number] Tablets One tablet daily [facility] Vital Signs Date Vital Result Comment 06/21/2025 2:30pm BP Systolic 124 mmHg BP Diastolic 82 mmHg Heart Rate 99 /min Height 64.75 inches 5'4.75 Weight 151.00 lb BMI (Body Mass Index) 25.3 kg/m2 Results Test Acquired Date Facility Test Result H/L Range N ote Creatinine, 24-Hour Urine 07/23/2025 [facility] Creatinine, Urine 51.4 mg/dL Not Estab. Creatinine, Ur 24hr 925 mg/24hr 800-1800 Calcium, 24HR Urine 07/23/2025 [facility] Calcium, Urine 25.0 mg/dL Not Estab. Calcium, Urine 24hr 450 mg/24hr High 0-320 PTH Intact + Calcium Ionized 07/20/2025 [facility] PTH, Intact 22 pg/mL 15-65 Calcium, Ionized, Serum 5.7 mg/dL High 4.5-5.6 Comp. Metabolic Panel (14) 07/05/2025 [facility] Glucose 113 mg/dL High 70-99 BUN 19 mg/dL 8-27 Creatinine 0.69 mg/dL 0.57-1.00 eGFR 88 mL/min/1.73 >59 BUN/Creatinine Ratio 28 12-28 Sodium 139 mmol/L 134-144 Potassium 4.4 mmol/L 3.5-5.2 Chloride 99 mmol/L 96-106 Carbon Dioxide, Total 30 mmol/L High 20-29 Calcium 10.9 mg/dL High 8.7-10.3 Protein, Total 7.2 g/dL 6.0-8.5 Albumin 4.3 g/dL 3.8-4.8 Globulin, Total 2.9 g/dL 1.5-4.5 Bilirubin, Total 0.2 mg/dL 0.0-1 .2 Alkaline Phosphatase 94 IU/L 49-135 Ast (Sgot) 22 IU/L 0-40 Alt (SGPT) 20 IU/L 0-32 TSH Rfx on Abnormal to Free T4 07/05/2025 [facility] TSH Rfx on Abnormal to Free T4 1.390 uIU/mL 0.450-4.50 0 Vitamin D, 25-Hydroxy 07/05/2025 [facility] Vitamin D, 25-Hydroxy 35.3 ng/mL 30.0-100.0 1 Calcium, Random Urine 01/07/2025 [facility] Calcium, Random Urine 13.2 mg/dL Not Estab. Calcium 01/05/2025 [facility] Calcium 10.5 mg/dL High 8.7-10.3 2 Albumin 01/05/2025 [facility] Albumin 4.2 g/dL 3.8-4.8 PTH, Intact 01/05/2025 [facility] PTH, Intact 31 pg/mL 15-65 Vitamin D, 25-Hydroxy 01/05/2025 [facility] Vitamin D, 25-Hydroxy 41.1 ng/mL 30.0-100.0 3 TSH Rfx on Abnormal to Free T4 12/14/2024 [facility] TSH Rfx on Abnormal to Free T4 1.710 uIU/mL 0.450-4.50 0 Thyrotropin Receptor Ab, Serum 12/14/2024 [facility] Thyrotropin Receptor Ab, Serum <1.10 IU/L 0.00-1.75 Thyroid Peroxidase (Tpo) Ab 12/14/2024 [facility] Thyroid Peroxidase (Tpo) Ab 10 IU/mL 0-34 1 Vitamin D deficiency has been defined by the [place] of Medicine and an Endocrine Society practice guideline as a level of serum 25-OH vitamin D less than 20 ng/mL (1,2). The Endocrine Society went on to further define vitamin D insufficiency as a level between 21 and 29 ng/mL (2). 1. IOM ([place] of Medicine). 2010. Dietary reference intakes for calcium and D. [place]: The National Academies Press. 2. Fabián Colby, Shan MAYORGA, et al. Evaluation, treatment, and prevention of vitamin D deficiency: an Endocrine Society clinical practice guideline. JCEM. 2010; 96(7):1911-30. 2 Verified by repeat analysis 3 Vitamin D deficiency has been defined by the [place] of Medicine and an Endocrine Society practice guideline as a level of serum 25-OH vitamin D less than 20 ng/mL (1,2). The Endocrine Society went on to further define vitamin D insufficiency as a level between 21 and 29 ng/mL (2). 1. IOM ([place] of Medicine). 2010. Dietary reference intakes for calcium and D. [place]: The National Academies Press. 2. Fabián Colby, Shan MAYORGA, et al. Evaluation, treatment, and prevention of vitamin D deficiency: an Endocrine Society clinical practice guideline. JCEM. 2010; 96(7):1911-30. Procedures Date Code Description Status 03/27/2022 NSHOWOFF No Show Office Visit Complet ed Medical Devices Description No Information Available Encounters Type Date Location Provider Dx Diagnosis Office Visit 07/05/2025 2:30p Main Office Brandon Garza NP E04.2 Nontoxic multinodular goiter M81.0 Age-related osteopor osis w/o current pathological fracture E03.9 Hypothyroidism, unsp ecified E83.52 Hypercalcemia Assessments Date Code Description Provider 07/05/2025 E04.2 Nontoxic multinodular goiter Brandon Garza, RUBI 07/05/2025 M81.0 Age-related oste oporosis without current pathological fracture Brandon Garza NP 07/05/2025 E03.9 Hypothyroidism Brandon shepherd, RUBI 07/05/2025 E83.52 Hypercalcemia Brandon montero NP Plan of Treatment Future Appointment(s):* 01/04/2026 10:00 am - Brandon Garza NP at Main Office 07/05/2025 - Brandon Garza NP* E04.2 Nontoxic multinodular goiter * M81.0 Age-related osteoporosis without current pathological fracture * E03.9 Hypothyroidism * E83.52 Hypercalcemia* New Labs:* Comp. Metabolic Panel (14), Ordered: 07/05/25 * TSH RFX On Abnormal To Free T4, Ordered: 07/05/25 * Vitamin D, 25-Hydroxy, Ordered: 07/05/25 * New Xrays:* Ultrasound Thyroid, Scheduled: 12/13/25 Functional Status Description No Information Available Mental Status Description No Information Available Referrals Refer to Reason for Referral Status Appt Scott Whalen M.D. Closed [address] [place] [address] [address] [place] [address] [phone]
--- OUTSIDE RECORDS SUMMARY | 2025-08-09 14:37 | XMS_ITS | Clinical Summary ---
Author Organization [facility] Address [address] [place] [id number] Phone Care Team Providers Care Electric Cell Tender Name Role Phone Jairo Reynolds DO Primary [...] mouth as needed for heartburn. 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 It is not the complete legal health record.[facility]
--- OUTSIDE RECORDS SUMMARY | 2025-08-09 14:37 | XMS_ITS | Clinical Summary ---
Author Organization [facility] Address [address] [place] [address] Phone Care Team Providers Care Labor Relations Officer Name Role Phone Mariana Maurice MD Primary Care Provider Allergies Active Allergy Reactions Criticality Noted Date Comments House Dust Mite 03/31/2020 Mold 02/07/2021 Other 12/25/2018 Pollen Extracts Runny nose 12/25/2018 Medications ascorbic acid (VITAMIN C) 500 mg chewable tablet Chew 1 tablet (500 mg total). Active b complex vitamins (Vitamins B Complex) capsule Take 1 capsule by mouth. Active calcium qtet-V3-fiehded um nita 133 mg calcium -133 unit-67 [...] Noted Date Diagnosed Date Avascular necrosis of femoral neck, right 2022 Pain in the neck 03/22/2022 Bilateral foot pain 03/06/2021 Overview (10/09/2023): Chronic, on gabapentin [facility] [place] Essential hypertension 03/31/2020 Mild dilation of ascending aorta 01/25/2020 Overview (10/09/2023): 3.[address] 01/2020. Ref to cardiac surg Osteoporosis 06/30/2019 Overview (10/09/2023): Bone density done in 2018- On Fosamax since 2018. Seeing rn angiography. Hypothyroidism 12/25/2018 Overview (10/09/2023): Also goiter Last Assessment & Plan: Endocrinolist MS (multiple sclerosis) 12/25/2018 Overview (10/09/2023): [facility] [place] Multiple sclerosis for 30 years, no major hospitalization. On Avonex injection since 2000. Anemia 12/09/2018 Prediabetes 12/09/2018 Encounters Date Type Department Care Team Description 06/25/2025 10:00 AM EST Office Visit [facility] [address] [place] [phone] Mariana Rowley PA MS (multiple sclerosis) (Primary Dx) 05/26/2025 1:25 PM EDT - 05/26/2025 11:59 PM EDT Hospital Encounter [facility] [address] [place] [phone] Encounter for screening mammogram for breast cancer Discharge Disposition: Home or Self Care from Last 3 Months Immunizations Immunization Administration Dates Next Due Influenza trivalent, 0.5mL ( Fluzone High-dose) 65yo and older 06/07/2022,05/29/2021,06/12/2019,05/04,06/03/2015 Influenza trivalent, with pr eservative (Fluzone; Afluria) 6mo and older 06/12/2019,04/26/2018,05/31/2014,06/03 Influenza, Unspecified 06/17/2023 Pfizer SARS-CoV-2 COVID-19, mRNA, LNP-S, preservative free 05/07/2022,06/29/2021,11/30/2020,11/09 [...] Sign Reading Time Taken Comments Blood Pressure 165/76 06/25/2025 10:20 AM EST Pulse 96 06/25/2025 10:20 AM EST Temperature 36.4 C (97.6 F) 06/25/2025 10:20 AM EST Respiratory Rate - - Oxygen Saturation 97% 06/25/2025 10:20 AM EST Inhaled Oxygen Concentration - - Weight 69.4 kg (153 lb) 12/23/2024 10:57 AM EDT Height 162.6 cm (5' 4 ) 12/23/2024 10:57 AM EDT Body Mass Index 26.26 12/23/2024 10:57 AM EDT Plan of Treatment Upcoming Encounters Date Type Department Care Team (Late st Contact Info) Description 08/31/2025 10:10 AM EST Consult Gastroenterology - [address] [place] [address] Le Shepard PA [address] [facility] [address] [place] [address] 12/23/2025 10:30 AM EDT Office Visit [facility] [address] [facility] [address] [place] [phone] Lisseth Mccarthy MD [address] [place] [address] Health Maintenance Due Date Last Done Comments RSV Immunization Adult Patients (1 - 1-dose 75+ series) 2020 Colorectal Cancer Screening: Stool Based Tests (FOBT/FIT) 07/21/2022 Falls Risk Assessment 07/21/2022 Medicare Annual Wellness Visit 07/21/2022 Social Influencers of Health Screening 07/21/2022 Depression Screening 08/12/2024 COVID-19 Vaccine ( season) 2025 06/17/2024, 06/05/2023, 05/07/2022, Additional history exists Influenza [...] Procedure Name Priority Date/Time Associated Diagnosis Comments MG MAMMO DIGITAL SCREENING W DWIGHT BILAT Routine 05/26/2025 1:57 PM EDT Encounter for screening mammogram for breast cancer DXA BONE DENSITY STUDY 1+ SITS AXIAL SKEL Routine 06/17/2023 11:32 AM EST Encounter for screening for osteoporosis from Last 3 Months or Most Recently Relevant to Health Maintenance Results * MG Mammo Digital Screening w Dwight bilat (05/26/2025 1:57 PM EDT) Anatomical Region Laterality Modality Breast Bilateral Mammography 05/26/2025 3:21 PM EDT Impressions 05/26/2025 3:22 PM EDT No evidence of breast malignancy. BI-RADS CATEGORY: 1 - NEGATIVE RECOMMENDATION: Screening bilateral mammogram is recommended in 1 year. Mammo Location: [facility], [address] [place] [address], [id number], . -------- FINAL REPORT -------- Dictated By: Patricia Zavala Dictated Date: 05/26/2025 15:21 ET Assigned Physician: Patricia Zavala Reviewed and Electronically Signed By: Patricia Zavala Signed Date: 05/26/2025 15:22 ET Workstation ID: [id number] Transcribed By: Self Edit Transcribed Date: 05/26/2025 15:21 ET Narrative 05/26/2025 3:22 PM EDT CLINICAL: 80 years old, Female, routine annual exam. COMPARISON: Multiple prior studies dating back to 2019 TECHNIQUE: Bilateral MLO and CC views were obtained digitally with 3-D mammogram (digital breast tomosynthesis). Computer-aided detection was utilized in evaluation of this exam (CAD). FINDINGS: There is no evidence of suspicious mass or architectural distortion. No worrisome calcifications are evident. There has been no significant change from prior exam(s). BREAST DENSITY: B - There are scattered areas of fibroglandular density. Procedure Note Patricia Zavala MD - 05/26/2025 CLINICAL: 80 years old, Female, routine annual exam. COMPARISON: Multiple prior studies dating back to 2019 TECHNIQUE: Bilateral MLO and CC views were obtained digitally with 3-Dmammogram (digital breast tomosynthesis). Computer-aided detection wasutilized in evaluation of this exam (CAD). FINDINGS: There is no evidence of suspicious mass or architectural distortion. Noworrisome calcifications are evident. There has been no significantchange from prior exam(s). BREAST DENSITY: B - There are scattered areas of fibroglandular density. IMPRESSION: No evidence of breast malignancy. BI-RADS CATEGORY: 1 - NEGATIVE RECOMMENDATION: Screening bilateral mammogram is recommended in 1 year. Mammo Location: [facility], [address] [place] [address], [id number], . -------- FINAL REPORT -------- Dictated By: Patricia Zavala Dictated Date: 05/26/2025 15:21 ET Assigned Physician: Patricia Zavala Reviewed and Electronically Signed By: Patricia Zavala Signed Date: 05/26/2025 15:22 ET Workstation ID: [id number] Transcribed By: Self Edit Transcribed Date: 05/26/2025 15:21 ET us Self Referral Sppl IMG BI PROCEDURES Final Resul t * DXA BONE DENSITY STUDY 1+ SITS [...] Based on the World Health Organization criteria, Eboni Schilling should be classified as having osteoporosis. The [facility] Department of Internal Medicine recommends using [...] Based on the World Health Organization criteria, Eboni A Schilling shouldbe classified as having osteoporosis. The [facility] Department of Internal Medicine recommendsusing National [...] or over-estimation of fracture risk by FRAX. us Braydon Hayes DO IMG DXA PROCEDURES Final Result from Last 3 Months or Most Recently Relevant to Health Maintenance Insurance [employer] - [place] MEDICARE ADVANTAGE Care Teams Labor Relations Officer Relationship Specialty Start Date End Date aMriana Maurice MD [address] [place] [phone] PCP - General Internal Medicine 12/15/24
== END 2025-08-09 13:24 | disposition home or self-care (01) ==
LOC: HO.HMCFM 12:46
PROVIDERS: PCP Internal Medicine; Visit Provider Internal Medicine
DX: I10 Essential (primary) hypertension (principal); R73.03 Prediabetes